=== PATIENT | female | born 1985 | race Caucasian/White ===

== ENCOUNTER 2017-02-04 21:42 | Emergency (ER) | payer MEDICAID, OTHER ==
[2017-02-04 22:16] VITALS: RESP 16
[2017-02-04 23:30] VITALS: BP 111/76; PULSE 98; O2SAT 97
== END 2017-02-04 23:16 | disposition home or self-care (01) | DRG 563 ==
LOC: ED 21:42
DX: S93.401A Sprain of unspecified ligament of right ankle, initial encounter (principal); W10.9XXA Fall (on) (from) unspecified stairs and steps, initial encounter
CPT/HCPCS: 73610; 99282; 99283

== ENCOUNTER 2018-04-14 21:30 | Emergency (ER) | payer OTHER ==
[2018-04-14 21:39] VITALS: BP 140/89; PULSE 57; RESP 18; TEMP 98; O2SAT 98
== END 2018-04-14 21:53 | disposition home or self-care (01) | DRG 556 ==
LOC: ED 21:30
DX: M79.661 Pain in right lower leg (principal)
CPT/HCPCS: 99282